=== PATIENT | male | born 1935 | race Caucasian/White ===

== ENCOUNTER 2023-02-06 15:10 | Emergency (ER) | payer MEDICARE, SELFPAY ==
[2023-02-06 15:33] VITALS: BP 141/56; PULSE 70; RESP 20; TEMP 36.6; O2SAT 98
--- NOTE | 2023-02-06 15:38 | ED.URI ---
HPI - URI/Sore Throat General Chief Complaint: Shortness of Breath/Dyspnea Stated Complaint: Throwing up, shortness of breath Time Seen by Provider: 02/06/23 15:35 Source: patient Mode of arrival: ambulatory Limitations: no limitations History of Present Illness HPI Narrative: Patient is a 87-year-old male who presents with 1 episode of vomiting today. Patient states he went to [employer] and had lunch then went to visit his . Patient states while he was with his he started feeling very nauseated and had 1 episode of emesis. Patient states he was diaphoretic during that time and felt weak. Patient states since then he has had no nausea, dizziness or shortness of breath. Patient has cardiology appointment on Friday. Patient states he would just like to be checked out to ensure hay and is not heart related or COVID. Denies any sick contacts. Related Data Home Medications Medication Instructions Recorded Confirmed Xarelto 02/06/23 bethanechol chloride 25 mg tablet mg 02/06/23 calcitriol 0.25 mcg capsule mcg 02/06/23 ergocalciferol (vitamin D2) 1,250 02/06/23 mcg (50,000 unit) capsule ezetimibe 10 mg tablet mg 02/06/23 fenofibrate 160 mg tablet mg 02/06/23 finasteride 5 mg tablet mg 02/06/23 lisinopril 10 mg tablet mg 02/06/23 simvastatin 40 mg tablet mg 02/06/23 tamsulosin 0.4 mg capsule mg PO 02/06/23 tramadol 50 mg tablet mg 02/06/23 Allergies Allergy/AdvReac Type Severity Reaction Status Date / Time No Known Allergies Allergy Verified 02/06/23 15:25 Review of Systems Review of Systems: All systems reviewed & are unremarkable except as noted in HPI and below Constitutional: Constitutional: Denies body ache(s), Denies chills, Denies fatigue, Denies fever(s), Denies headache(s), Denies malaise and Denies weakness Eyes: Eyes: Denies blurry vision, Denies itchy eyes and Denies loss of vision ENT: Denies otalgia, Denies headache(s), Denies nasal congestion, Denies sinus pain and Denies sore throat Cardiovascular: Cardiovascular: Denies chest pain, Denies irregular heart rhythm and Denies dyspnea Respiratory: Respiratory: Denies cough and Denies dyspnea Gastrointestinal: Gastrointestinal: Denies abdominal pain, Denies diarrhea, Reports nausea and Reports vomiting Musculoskeletal: Musculoskeletal: Denies back pain, Denies myalgias and Denies arthralgias Integumentary/Breasts: Skin/Breast: Denies pruritus and Denies rash Neurologic: Denies headache(s), Denies loss of vision and Denies weakness Psychiatric: Psychiatric: Reports no additional psychiatric complaints Endocrine: Endocrine: Denies fatigue Allergic/Immunologic: Allergic/Immunologic: Denies itchy eyes PMFSH Comments At time of signature, agree with nursing past medical, surgical, social and family history. There is no relevant family history pertinent to the presenting complaint. Exam Const: General: cooperative, healthy appearing, comfortable, no acute distress and well nourished Nutritional Appearance: well nourished Orientation/consciousness: patient oriented x3 Limitations: no limitations HENMT: Head: normal to inspection, normocephalic and atraumatic Ears: hearing grossly normal bilaterally, external ears normal, TM's normal bilaterally, EAC's normal and no periauricular adenopathy Face/Nose/Sinus: Normal external nose present, Normal nasal mucous membranes and turbinates present, normal facial exam, sinuses nontender and face symmetric Face and sinus: normal facial exam, sinuses nontender and face symmetric Mouth: Yes Normal oral and palatal mucosa present, Yes lip normal, Yes tongue normal, Yes Normal salivary glands and ducts present, Yes oropharynx normal and Yes moist mucous membranes Teeth and gingiva: dentition normal Throat: posterior oropharynx normal, tonsils normal and uvula midline Eyes: General: appearance normal, both eyes and all related structures Alignment and Position: alignment normal and pos
--- NOTE | 2023-02-06 15:49 | ECG_ITS ---
Measurements Intervals [place] Rate: 65 P: 49 AL: 177 QRS: 48 QRSD: 105 T: 40 QT: 366 QTc: 381 Interpretive Statements SINUS RHYTHM NO PREVIOUS ECG AVAILABLE FOR COMPARISON Electronically Signed On 02-07-2023 14:23:12 CDT by Joanna Mike M.D.
[2023-02-06 16:10] LABS: Glucose Point of Care 144 mg/dl (65-105)
== END 2023-02-06 16:10 | disposition home or self-care (01) ==
PROVIDERS: Emergency Provider Nurse Practitioner Family; PCP Internal Medicine
DX: R11.2 Nausea with vomiting, unspecified (principal); Z20.822 Contact with and (suspected) exposure to COVID-19; E78.00 Pure hypercholesterolemia, unspecified; F41.9 Anxiety disorder, unspecified; Z95.5 Presence of coronary angioplasty implant and graft
CPT/HCPCS: 82948; 87426; 93005; 99213; C9803; G0463

== ENCOUNTER 2023-02-17 14:40 | Outpatient (CLI) | payer MEDICARE, SELFPAY ==
--- NOTE | 2023-02-18 07:02 | WPDPFTINT ---
PFT Procedure Performed PFT Procedure Performed Plethysmography (Lung Vol) Diffusing Cap (DLCO) Flow Vol Loop Spirometry w/o Bronchodil PFT Interpretation This is a pulmonary function test with spirometry, plethysmography and diffusing capacity. The test was performed and results interpreted in accordance with the 2019 and 2005 ATS/ERS Task Force guidelines respectively using the Global Lung Function Initiative-2012 reference equations. Patient demonstrated good effort and cooperation. Reproducibility criteria were met. The quality of the spirometry maneuver was Grade A. Findings: Spirometry: The contour the inspiratory and expiratory flow tracing are normal. The FVC is 2.67 L, 86% predicted. The FEV1 is 2.10 L, 91% predicted. The FEV1: FVC ratio 79%. Plethysmography: The total lung capacity is 4.13 L, 68% predicted. The functional residual capacity is 2.24 L, 69% predicted. The residual volume is 1.33 L, 53% predicted. Diffusing capacity: The diffusing capacity unadjusted for hemoglobin and carboxyhemoglobin is 12.2, 59% predicted. The diffusing capacity adjusted for alveolar volume is 3.40, 91% predicted. Impression: There is a mild restrictive ventilatory abnormality with a normal FEV1. The spirometry is normal without evidence of an obstructive abnormality. The diffusing capacity unadjusted for hemoglobin and carboxyhemoglobin is moderately decreased and normalizes when adjusted for alveolar volume. There are no prior studies for comparison
== END 2023-02-17 14:41 | disposition home or self-care (01) ==
LOC: ANHPFT 14:42
PROVIDERS: PCP Internal Medicine; Visit Provider Internal Medicine
DX: R06.00 Dyspnea, unspecified (principal); R94.2 Abnormal results of pulmonary function studies
CPT/HCPCS: 94375; 94726; 94729

== ENCOUNTER 2024-10-23 11:27 | Outpatient (CLI) | payer MEDICARE, SELFPAY ==
--- NOTE | ~2024-10-23 | XR_ITS ---
3 VIEWS LUMBAR SPINE Ordering provider: Thomas Rodriguez History: . Low back pain; pulling/lifting injury last week . Comparison: None. FINDINGS: VERTEBRAL BODIES:Postoperative changes at the level of L4 and L5. No visible fracture or subluxation . Degenerative changes of the spine. DISK SPACES: Narrowing of the disc L2-L3, L3-L4, L4-L5 and L5-S1. Facet joint disease at the level of L4-L5 and L5-S1. SOFT TISSUES: Atherosclerotic changes of the aorta with possibility of dilatation the left distal aor ta.. Ultrasound evaluation advised. IMPRESSION: No acute osseous abnormality lumbar spine. Multilevel degenerative disc. Reviewed, dictated and finalized at location A.
== END 2024-10-23 11:28 | disposition home or self-care (01) ==
PROVIDERS: PCP Internal Medicine
DX: M51.369 Other intervertebral disc degeneration, lumbar region without mention of lumbar back pain or lower extremity pain (principal)
CPT/HCPCS: 72100

== ENCOUNTER 2025-01-17 13:23 | Outpatient (CLI) | payer MEDICARE, SELFPAY ==
--- NOTE | ~2025-01-17 | CT_ITS ---
EXAMINATION: CT lumbar spine wo con DATE: 01/17/2025 13:57 INDICATION: Lumbar radicular pain TECHNIQUE: Computed tomography (CT) of the lumbar spine was performed without intravenous contrast. T he dose-length product was 822.17 mGy-cm. COMPARISON: None FINDINGS: 5 degrees lower lumbar levocurvature. Sagittal alignment is normal. Vertebral body heights are normal . No fracture. Severe disc height loss at L2-L3, L4-L5 and L5-S1. Mild disc height loss at L1-L2 and L3-L4. Mild bilateral renal atrophy. Partially visualized fusiform infrarenal abdominal aortic aneury sm visualized portion which measures up to 5.6 cm in maximal diameter which is spanned by an aorto bi iliac endoluminal stent graft. Paravertebral soft tissues are otherwise unremarkable. The following d isc levels are specifically discussed: T12-L1: There is moderate left and mild to moderate right facet joint osteoarthritis. There is no aga ral foraminal stenosis. There is no central canal stenosis. L1-L2: Disc is bulging. There is right and mild left facet joint osteoarthritis. There is moderate le ft and mild right neural foraminal stenosis. There is mild central canal stenosis. L2-L3: Disc is bulging. There is moderate to severe bilateral facet joint osteoarthritis. There is mo derate bilateral neural foraminal stenosis. There is moderate central canal stenosis. L3-L4: Disc is bulging. There is moderate bilateral facet joint osteoarthritis. There is moderate rachell ateral neural foraminal stenosis. There is mild to moderate central canal stenosis. L4-L5: Disc is bulging. There is moderate bilateral facet joint osteoarthritis. There is moderate rachell ateral neural foraminal stenosis. There is mild central canal stenosis. L5-S1: Posterior disc osteophyte complex. There is moderate bilateral facet joint osteoarthritis. The re is moderate bilateral neural foraminal stenosis. There is no central canal stenosis. IMPRESSION: 1. Severe lumbar spondylosis. Reviewed, dictated and finalized at location A.
== END 2025-01-17 13:24 | disposition home or self-care (01) ==
LOC: MICIMG 13:25
PROVIDERS: PCP Internal Medicine; Visit Provider Nurse Practitioner Family
DX: M47.26 Other spondylosis with radiculopathy, lumbar region (principal)
CPT/HCPCS: 72131

== ENCOUNTER 2025-02-22 07:21 | Emergency (ER) | payer MEDICARE, SELFPAY ==
--- OUTSIDE RECORDS SUMMARY | 2025-01-05 10:15 | XMS_ITS ---
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 Role Phone Hunter Mark Unavailable [phone] Social History Sex Assigned At : Social History Observation Description Sex Assigned At Male Encounters Encounter Location Date Provider Diagnosis [place] [facility] [address] [facility] [address] [place] [address] 01/05/2025 Hunter Mark Plan Of Treatment Next Appt Details Provider Name:Hunter Mark , 04/15/2025 01:15:00 PM, [address] [facility], [facility], [place], [address], Progress Notes * HANNAH MILLERDOB: (89 yo M)Acc No.[id number]:01/05/2025 Progress Notes Patient: HANNAH LOUIS Provider: Myriam FRANCIS MD, ShirleyC.P, F.A.S.N. :1935 A ge:89 Y S ex:Male Date:01/05/2025 Address:[address] [place] [address] Subjective: * Chief Complaints: * * Medical History: Objective: * Vitals: Assessment: Plan: * Treatment: * Billing Information: * Visit Code: * Procedure Codes: * Electronic signature of Maria Guadalupe Mark MD on 02/22/2025 at 07:23 AM CDT Sign off status: Pending * Provider: Myriam FRANCIS MD, Figueroa.Rachel.C.P, F.A.S.N. Date: 01/05/2025 Generated for Printing/Faxing/eTransmitting on: 0 02/22/2025 07:23 AM CDT
--- OUTSIDE RECORDS SUMMARY | 2025-01-26 11:15 | XMS_ITS ---
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 Role Phone Hunter Mark Unavailable [phone] Social History Sex Assigned At : Social History Observation Description Sex Assigned At Male Encounters Encounter Location Date Provider Diagnosis [place] [facility] [address] [facility] [address] [place] [address] 01/26/2025 Hunter Mark Plan Of Treatment Next Appt Details Provider Name:Hunter Mark , 04/15/2025 01:15:00 PM, [address] [facility], [facility] [address], [place], [address], Progress Notes * HANNAH MILLERDOB: (89 yo M)Acc No.[id number]:01/26/2025 Progress Notes Patient: HANNAH LOUIS Provider: Myriam FRANCIS MD, ShirleyC.P, F.A.S.N. :1935 A ge:89 Y S ex:Male Date:01/26/2025 Address:[address] [place] [address] Subjective: * Chief Complaints: * * Medical History: Objective: * Vitals: Assessment: Plan: * Treatment: * Billing Information: * Visit Code: * Procedure Codes: * Electronic signature of Maria Guadalupe Mark MD on 02/22/2025 at 07:24 AM CDT Sign off status: Pending * Provider: Myriam FRANCIS MD, Figueroa.Rachel.C.P, F.A.S.N. Date: 01/26/2025 Generated for Printing/Faxing/eTransmitting on: 0 02/22/2025 07:24 AM CDT
--- OUTSIDE RECORDS SUMMARY | 2025-01-28 10:30 | XMS_ITS ---
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 Name Role Phone Hunter Mark Unavailable [phone] Social History Sex Assigned At : Social History Observation Description Sex Assigned At Male Problems Problem Type SNOMED Code ICD Code Onset Dates Problem Status W/U Status Risk Notes Problem Chronic kidney disease, stage 3a (N18.31) Active confirmed Encounters Encounter Location Date Provider Diagnosis [place] [facility] [address] [facility] [address] [place] [address] 01/28/2025 Hunter Mark Chronic kidney disea se, stage 3a N18.31 ; Essential hypertension I10 ; Edema, unspecified R60.9 ; Proteinuria, unspecified R80.9 ; Secondary hyperparathyroidism, not elsewhere classified E21.1 ; Renal osteodystrophy N25.0 ; Type 2 diabetes mellitus with diabetic chronic kidney disease E11.22 ; Hyperlipidemia, unspecified E78.5 ; 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 ; Sciatica, unspecified side M54.30 and Abdominal aortic aneurysm, without rupture, unspecified I71.40 Assessments Encounter Date Diagnosis (ICD Code) Assessment Notes Treatment Notes Treatment Clinical Notes Section Notes 01/28/2025 Chronic kidney disease, stage 3a (ICD-10 - N18.31) 01/28/2025 Essential hypertension (ICD-10 - I10) 01/28/2025 Edema, unspecified (ICD-10 - R60.9) 01/28/2025 Proteinuria, unspecified (ICD-10 - R80.9) 01/28/2025 Secondary hyperparathyroidism , not elsewhere classified (ICD-10 - E21.1) 01/28/2025 Renal osteodystrophy (ICD-10 - N25.0) 01/28/2025 Type 2 diabetes mellitus with diabetic chronic kidney disease (ICD-10 - E11.22) 01/28/2025 Hyperlipidemia, unspecified (ICD-10 - E78.5) 01/28/2025 Neurocognitive disorder with Lewy bodies (ICD-10 - G31.83) 01/28/2025 Sciatica, unspecified side (ICD-10 - M54.30) 01/28/2025 Abdominal aortic aneurysm, without rupture, unspecified (ICD-10 - I71.40) Plan Of Treatment Next Appt Details Provider Name:Hunter Jas , 04/15/2025 01:15:00 PM, [address] [facility], [facility] [address], [place], [address], Progress Notes * HANNAH MILLERDOB: 8 (89 yo M)Acc No.[id number]:01/28/2025 Progress Notes Patient: HANNAH LUOIS Provider: Myriam FRANCIS MD, F.A.C.P, F.A.S.N. :1935 A ge:89 Y S ex:Male Date:01/28/2025 Address:[address] [place] [id number] Subjective: * Chief Complaints: Objective: Assessment: * Assessment: 1. C hronic kidney disease, stage 3a - N18.31 (Primary) 2 . E ssential hypertension - I10 3 . E moni, unspecified - R60.9 4 . P roteinuria, unspecified - R80.9 5 . S econdary hyperparathyroidism, not elsewhere classified - E21.1 6 . R enal osteodystrophy - N25.0 7 . 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 H yperlipidemia, unspecified - E78.5 9 . N eurocognitive disorder with Lewy bodies - G31.83 10. S ciatica, unspecified side - M54.30 1 1. A bdominal aortic aneurysm, without rupture, unspecified - I71.40 Plan: * Billing Information: * Visit Code: 89863 Office Visit, Est Pt., Level 4. * Procedure Codes: * Electronic signature of Maria Guadalupe Mark MD on 02/22/2025 at 07:24 AM CDT Sign off status: Pending * Provider: Myriam FRANCIS MD, F.A.C.P, F.A.S.N. Date: 01/28/2025 Generated for Printing/Faxing/eTransmitting on: 02/22/2025 07:24 AM CDT
--- OUTSIDE RECORDS SUMMARY | 2025-02-22 07:24 | XMS_ITS | Clinical Summary ---
Author Organization [facility] Address [address] [place] [address] Care Team Providers Care Chro Name Role Phone Luis Middleton MD Unavailable [phone] Campbell Treadwell MD Primary Care Provider Reji Morgan MD Unavailable [phone] Allergies No known active allergies Medications traMADoL (ULTRAM) 50 mg tablet Take 1 tablet (50 mg total) by mouth daily as needed Active tamsulosin (FLOMAX) 0.4 mg extended release capsule Take 1 capsule (0.4 mg total) by mouth every morning Active simvastatin (ZOCOR) 40 mg tablet Take 1 tablet (40 mg total) by mouth nightly 4 Active prednisoLONE sodium phosphate (INFLAMASE FORTE) 1 % ophthalmic solution Active nitroglycerin (Nitrostat) 0.4 mg SL tablet Apply topically 4 Active meclizine (ANTIVERT) 25 mg tablet Take 1 tablet (25 mg total) by mouth 3 (three) times a day as needed 5 Active losartan (COZAAR) 100 mg tablet Take 1 tablet (100 mg total) by mouth every morning Active finasteride (PROSCAR) 5 mg tablet Take 1 tablet (5 mg total) by mouth every morning Active ezetimibe (ZETIA) 10 mg tablet Take 1 tablet (10 mg total) by mouth every morning Active ergocalciferol (VITAMIN D) 50,000 unit capsule Take 1 capsule (50,000 Units total) by mouth every 14 (fourteen) days Active cyanocobalamin, vitamin B-12, 1,000 mcg capsule Take 1 tablet/capsule by mouth as needed 2 Active clopidogreL (PLAVIX) 75 mg tablet Take 1 tablet (75 mg total) by mouth every morning 5 Active calcitRIOL (ROCALTROL) 0.25 mcg capsule Take 1 tablet by mouth every morning Active bethanechol (URECHOLINE) 25 mg tablet Take 1 tablet (25 mg total) by mouth every morning Active aspirin 81 mg chewable tablet Take 1 tablet (81 mg total) by mouth every morning Active amitriptyline (ELAVIL) 25 mg tablet Take 1 tablet (25 mg total) by mouth nightly 5 Active allopurinoL (ZYLOPRIM) 100 mg tablet Take 1 tablet (100 mg total) by mouth every morning Active amLODIPine (NORVASC) 5 mg tablet Take 1 tablet (5 mg total) by mouth every morning Active omeprazole (PriLOSEC) 20 mg capsule 5 Active Active Problems Problem Noted Date Diagnosed Date Cervical spondylosis 12/23/2024 Moderate major depression 12/23/2024 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 Edema, unspecified 11/19/2024 Proteinuria 11/19/2024 Sciatica 11/19/2024 Secondary hyperparathyroidism 11/19/2024 Abdominal aortic aneurysm (AAA) without rupture 11/17/2024 Abnormal renal function 10/25/2024 Arthritis 10/25/2024 Dyslipidemia 10/25/2024 Ingrowing toenail 10/25/2024 Lesion of penis 10/25/2024 Upper respiratory infection 10/25/2024 Benign paroxysmal positional vertigo 10/25/2024 Dysuria 11/20/2023 Pain of left hip joint 11/11/2023 Hearing loss 06/17/2023 Insomnia 05/14/2023 Gastroesophageal reflux disease without esophagi tis 04/11/2023 Venous insufficiency 03/14/2023 Pulmonary hypertension 03/06/2023 Atherosclerosis of [place] ter[place] of extremities with intermittent claudication, unspecified extremity 02/28/2023 Dyspnea 01/21/2023 Impacted cerumen of right ear 01/21/2023 Lower urinary tract symptoms due to benign prostatic hyperplasia 11/18/2022 Nocturia 10/07/2022 Urinary hesitancy due to benign prostatic hyperp lasia 10/07/2022 Anxiety 09/09/2022 Low back pain 08/20/2022 Symptoms involving urinary system 08/12/2022 Acute sinusitis 08/06/2022 Renal artery stenosis 03/06/2022 Visual disturbance 01/08/2022 Neck pain 08/19/2021 Type 2 diabetes mellitus without complication Diastolic dysfunction 06/03/2019 Hypercholesterolemia 06/03/2019 Overview (12/23/2024): could not affored vascpae Phreesia 12/23/2022 Abnormal prostate specific antigen (PSA) 018 Type 2 diabetes mellitus wit h diabetic chronic kidney disease 04/23/2018 Overview (10/25/2024): on nikki, coudl noat afford farxaiga, neg uacr B12 deficiency 04/22/2018 Overview (10/25/2024): folate ok Supraventricular tachycardia 04/22/2018 Valvular heart disease 04/22/2018 Benign nodular prostatic hyp erplasia with lower urinary tract symptoms 06/18/2017 Anemia 02/20/2017 Renal osteodystrophy 02/20/2017 Anemia, iron deficiency 07/15/2016 Coronary atherosclerosis 04/03/2016 Overview (10/25/2024): on x 2.5 Hypertension 04/03/2016 Overview (12/23/2024): Phreesia 12/23/2022 Obesity 04/03/2016 Overview (10/25/2024): wegovy not covred Sleep apnea, unspecified 04/03/2016 Vertigo 04/03/2016 Abdominal aortic aneurysm 01/10/2014 Chronic obstructive pulmonary disease 01/10/2014 Pure hypercholesterolemia, unspecified 4 Encounters Date Type Department Care Team Description 12/23/2024 11:00 AM CDT Office Visit [facility] [address] [place] [phone] Luis Middleton MD Encounter for surgical aftercare following surgery on the circulatory system (Primary Dx); Infrarenal abdominal aortic aneurysm (AAA) without rupture; Moderate major depression (HCC); Pulmonary hypertension (HCC); Diffuse Lewy body disease (HCC); Pulmonary emphysema, unspecified emphysema type (HCC); Type 2 diabetes mellitus with stage 3 chronic kidney disease, unspecified whether extermination supervisor insulin use, unspecified whether stage 3a or 3b CKD (HCC) 12/23/2024 9:56 AM CDT - 12/23/2024 11:59 PM CDT Hospital Encounter [facility] - [facility] [address] [place] [id number] Luis Middleton MD Infrarenal abdominal aortic aneurysm (AAA) without rupture Discharge Disposition: Discharge to home or self care from Last 3 Months Immunizations Immunization Administration Dates Next Due Influenza, Quad, Adjuvantate d, Intramuscular 03/08/2023,04/03/2022 Influenza, Quadrivalent, Hig h Dose, Preservative Free, Intrr 05/11/2021,04/13/2020 Influenza, Quadrivalent, Spl it, Intramuscular 04/21/2019 Influenza, Trivalent, High D ose, Split, Preservative Free, Intramuscular 04/21/2024,04/11/2020,04/21/2019,04/08,04/28/2017,04/27/2017,04/26/2016 ,04/10/2015,04/06/2015,04/21/2013 Influenza, Trivalent, IM (MDV) 04/13/2014 Influenza, Unspecified 04/09/2018 Pfizer SARS-CoV-2 Monovalent Vaccination (12+ Yrs) PURPLE 10/16/2020,09/18/2020 Pneumococcal Conjugate PCV 13 02/14/2017 Pneumococcal Conjugate, Unspecified 05/02/2012 RSV Vaccine, Pref, Recombina nt, Subunit, Adjuvanted, PF, IM (Arexvy) 10/05/2024 Surgical History Surgery Date Site/Laterality Comments REPLACEMENT TOTAL KNEE 06/30/2016 - 06/29/2017 Right BACK SURGERY EYE SURGERY Cataracts CARDIAC SURGERY Stent placement JOINT REPLACEMENT Medical History Medical History Date Comments Hypertension Hyperlipidemia Pulmonary hypertension (HCC) AAA (abdominal aortic aneurysm) CAD (coronary artery disease) CKD (chronic kidney disease) Hyperkalemia Vertigo SVT (supraventricular tachycardia) Renal artery stenosis Social History Tobacco Use Types Packs/Day Years Used Date Smoking Tobacco: Former Cigarettes Smokeless Tobacco: Never Tobacco Cessation:Counseling Given: Not Answered [facility] Utilities Answer Date Recorded In the past 12 months has e electric, gas, oil, or water company threatened to shut off services in your home? No 11/18/2024 Social Connection and Isolation Panel Answer Date Recorded In a typical week, how many times do you talk on the phone with family, friends, or neighbors? Three times a week 11/18/2024 How often do you get togethe r with friends or relatives? Twice a week 11/18/2024 How often do you attend [facility] or rastafari services? More than 4 times per year 11/18/2024 Do you belong to any clubs o r organizations such as sabianist groups, unions, fraternal or athletic groups, or school groups? Yes 11/18/2024 Attends Club or Organization Meetings Not on chidi e 11/18/2024 Are you , , di vorced, , never , or living with a partner? 11/18/2024 AUDIT-C Answer Date Recorded Q1: How often do you have a drink containing alcohol? Never 11/04/2024 Q2: How many drinks containi ng alcohol do you have on a typical day when you are drinking? Patient does not drink Frequency of Binge Drinking Not on file 01/2025 Overall Financial Resource Strain (CARDIA) Answe r Date Recorded How hard is it for you to pa y for the very basics like food, housing, medical care, and heating? Not very hard 11/18/2024 Hunger Vital Sign Answer Date Recorded Within the past 12 months, y ou worried that your food would run out before you got the money to buy more. Sometimes true Within the past 12 months, t he food you bought just didn't last and you didn't have money to get more. Sometimes true PRAPARE - Transportation Answer Date Re corded In the past 12 months, has l ack of transportation kept you from medical appointments or from getting medications? No 10/29 In the past 12 months, has l ack of transportation kept you from meetings, work, or from getting things needed for daily living? No 11/18/2024 Housing Stability Vital Sign Answer Eladio e Recorded In the last 12 months, was t here a time when you were not able to pay the mortgage or rent on time? No 11/18/2024 In the past 12 months, how m any times have you moved where you were living? 0 11/18/2024 At any time in the past [facility], were you homeless or living in a [facility] (including now)? No 11/18/2024 Personal Safety Answer Date Recorded Have you ever been in or are you currently in a harmful physical or emotional relationship or is someone making you feel afraid or unsafe? Denies 11/17/2024 Sex and Gender Information Value Date Recorded Sex Assigned at Not on file Legal Sex Male 3:56 PM [employer] Gender Identity Not on file Sexual Orientation Not on file Obstetrics History Last Filed Vital Signs Vital Sign Reading Time Taken Comments Blood Pressure 145/71 12/23/2024 11:11 AM CDT Pulse 61 12/23/2024 11:11 AM CDT Temperature 36.4 C (97.5 F) 12/23/2024 11:11 AM CDT Respiratory Rate 17 11/19/2024 7:41 AM CDT Oxygen Saturation 99% 12/23/2024 11:11 AM CDT Inhaled Oxygen Concentration - - Weight 81.4 kg (179 lb 6.4 oz) 12/23/2024 11:11 AM CDT Height 165.1 cm (5' 5) 12/23/2024 11:11 AM CDT Body Mass Index 29.85 12/23/2024 11:11 AM CDT Plan of Treatment Health Maintenance Due Date Last Done Comments Albumin Creatinine Ratio, Urine 1937 Depression Screening 1937 Dilated Eye Exam 1937 Foot Exam 1937 Lipid Panel 1937 DTaP/Tdap/Td Vaccine (1 - Tdap) 1948 Hepatitis B Screening 12/12/1955 Zoster Vaccine (1 of 2) 12/12/1987 Well Visit 65+ 2002 Pneumococcal vaccine 65+ (2 of 2 - PPSV23, PCV20, or PCV21) 04/11/2017 02/14/2017, 05/02/2012 Covid-19 Vaccine (2023-2 5 season) 2024 07/04/2023, 05/14/2022, 06/01/2021, Additional history exists Influenza Vaccine (#1) 2025 , 03/08/2023, 04/03/2022, Additional history exists Hemoglobin A1C 05/07/2025 11/04/2024 eGFR 11/18/2025 11/18/2024, 11/04/2024 Fall Risk Assessment 11/19/2025 11/19/2024 Medical Devices Implanted Type Area Vein Pumper Device Identifier Shelf Expiration Date Model / Serial / Lot [employer] Excluder 14.5mm 26mm 12cm 5.5cm Conformable Active Control Trunk [id number] - [id number] - [id number] Implanted:Qty: 1 on 11/17/2024 by Luis Middleton MD at [facility] Stent Right: Aorta [employer] [id number] 09/07/2027 [id number] / [id number] / Description:Main body to the right aorta [employer] Excluder 16mm 13.5-14.5mm 11.5cm Stent Abrasion Resistant [id number] - [id number] - [id number] Implanted:Qty: 1 on 11/17/2024 by Luis Middleton MD at [facility] Stent Left: Iliac [employer] [id number] 05/13/2027 [id number] / [id number] / [employer] Excluder 16mm 13.5-14.5mm 9.5cm Stent Abrasion Resistant [id number] - [id number] - [id number] Implanted:Qty: 1 on 11/17/2024 by Luis Middleton MD at [facility] Stent Right: Iliac [employer] [id number] 07/26/2027 [id number] / [id number] / [employer] Closure Repair Femoral Artery Suture Mediated Perclose Prostyle 02384-94 - Sna - [id number] Implanted:Qty: 2 on 11/17/2024 by Luis Middleton MD at [facility] Right: Groin [employer] 08/27/2026 [id number] / NA / [id number] [employer] Closure Repair Femoral Artery Suture Mediated Perclose Prostyle 95270-42 - [id number] Implanted:Qty: 2 on 11/17/2024 by Luis Middleton MD at [facility] Left: Groin [employer] 08/27/2026 [id number] / / [id number] Procedures Procedure Name Priority Date/Time Associated Diagnosis Comments CTA ABDOMEN PELVIS W WO CONTRAST Schedule Routine, Read Routine (OP Routine) 12/23/2024 10:40 AM CDT Infrarenal abdominal aortic aneurysm (AAA) without rupture POCT CREATININE FOR CONTRAST EVALUATION Routine 12/23/2024 10:08 AM CDT EGFR Routine 11/18/2024 12:46 AM CDT HEMOGLOBIN A1C Routine 11/04/2024 10:46 AM CDT Preoperative examination from Last 3 Months or Most Recently Relevant to Health Maintenance Results * CTA Abdomen Pelvis (12/23/2024 10:40 AM CDT) Anatomical Region Laterality Modality Body N/A Computed Tomogra phy 12/24/2024 8:12 AM CDT Impressions 12/24/2024 8:24 AM CDT IMPRESSION: 1. Unchanged size of the 55 mm x 55 mm infrarenal abdominal aortic aneurysm with interval placement of an aortobiiliac stent graft. 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 2. AAA volume: 135 cc. This is was not measured on the prior examination. Dictated by: Singh Barry M.D. The radiology attending physician has personally reviewed this study, and had reviewed and/or edited this written report and agrees with it. Electronically signed by: Melisa Rader M.D. Narrative 12/24/2024 8:24 AM CDT EXAMINATION: CT ANGIOGRAPHY OF THE ABDOMEN AND PELVIS WITH AND WITHOUT CONTRAST HISTORY: 89-year-old male status post endovascular repair of abdominal aortic aneurysm on 11/17/2024. TECHNIQUE: CT angiography of the abdomen and pelvis was performed prior to and following the uneventful intravenous administration of 100 ml Optiray-350 using the post-endoluminal stent graft protocol. Vascular 3D images were generated on a dedicated workstation and also reviewed. COMPARISON: CT abdomen and pelvis 10/24/2024. FINDINGS: VASCULAR FINDINGS: There is an infrarenal abdominal aortic aneurysm with interval placement of an [id number]-jh-uccvn stent graft. The proximal attachment site is just distal to the takeoff of the renal arteries, and the distal attachment sites are in the bilateral common iliac arteries. There is perigraft flow along the distal portion of the stent graft compatible with an endoleak, which is likely arising from the inferior mesenteric artery (series 5 image 60, series 9 image 40).] No visceral stents are present. AAA volume (lowest renal artery to aortic bifurcation): 135 cc. This is stable since the prior exam. The maximum diameter of the aneurysm is 55 mm AP x 55 mm [id number], previously 55 x 53 mm. The maximum diameter of the graft is 24 mm AP x 24 mm qxufp-od-nimb. NON-VASCULAR FINDINGS: Scattered granulomas in the imaged lung bases. Liver, adrenal glands, and spleen are normal. Fatty atrophy of the pancreas. Kidneys enhance symmetrically without hydronephrosis. Bilateral hypoattenuating renal lesions, some which likely represent renal cysts while others are too small to characterize. Left retroaortic renal vein. Urinary bladder is normal. No bowel obstruction. No abdominal or pelvic lymphadenopathy. No suspicious osseous lesion. Procedure Note Melisa Rader MD - 12/24/2024 EXAMINATION: CT ANGIOGRAPHY OF THE ABDOMEN AND PELVIS WITH AND WITHOUT CONTRAST HISTORY: 89-year-old male status post endovascular repair of abdominal aortic aneurysm on 11/17/2024. TECHNIQUE: CT angiography of the abdomen and pelvis was performed prior to and following the uneventful intravenous administration of 100 ml Optiray-350 using the post-endoluminal stent graft protocol. Vascular 3D images were generated on a dedicated workstation and also reviewed. COMPARISON: CT abdomen and pelvis 10/24/2024. FINDINGS: VASCULAR FINDINGS: There is an infrarenal abdominal aortic aneurysm with interval placement of an clqyj-mc-xkzct stent graft. The proximal attachment site is just distal to the takeoff of the renal arteries, and the distal attachment sites are in the bilateral common iliac arteries. There is perigraft flow along the distal portion of the stent graft compatible with an endoleak, which is likely arising from the inferior mesenteric artery (series 5 image 60, series 9 image 40).] No visceral stents are present. AAA volume (lowest renal artery to aortic bifurcation): 135 cc. This is stable since the prior exam. The maximum diameter of the aneurysm is 55 mm AP x 55 mm gqemr-wp-uzmc, previously 55 x 53 mm. The maximum diameter of the graft is 24 mm AP x 24 mm kfhyi-tr-vzdm. NON-VASCULAR FINDINGS: Scattered granulomas in the imaged lung bases. Liver, adrenal glands, and spleen are normal. Fatty atrophy of the pancreas. Kidneys enhance symmetrically without hydronephrosis. Bilateral hypoattenuating renal lesions, some which likely represent renal cysts while others are too small to characterize. Left retroaortic renal vein. Urinary bladder is normal. No bowel obstruction. No abdominal or pelvic lymphadenopathy. No suspicious osseous lesion. IMPRESSION: IMPRESSION: 1. Unchanged size of the 55 mm x 55 mm infrarenal abdominal aortic aneurysm with interval placement of an aortobiiliac stent graft. 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 2. AAA volume: 135 cc. This is was not measured on the prior examination. Dictated by: Singh Barry M.D. The radiology attending physician has personally reviewed this study, and had reviewed and/or edited this written report and agrees with it. Electronically signed by: Melisa Rader M.D. Luis Middleton MD IMG CT PROCEDURES Final Result * POCT creatinine for contrast evaluation (12/23/2024 10:08 AM CDT) Creatinine, POC 1.1 0.6 - 1.5 mg/dL Comment:eGFR: 67 Blood 12/23/2024 10:0 8 AM CDT us Luis Middleton MD POINT OF CARE TEST LASHONDA HACKETT Final Result * eGFR (11/18/2024 12:46 AM CDT) eGFR 73 >=60 mL/min/1. 73 m2 Comment: Interpretive Data Reference Interval Normal >/= 90 mL/min/1.73m2 Mildly decreased* 60 - 89 mL/min/1.73m2 Mildly to moderately decreased 45 - 59 mL/min/1.73m2 Moderately to severely decreased 30 - 44 mL/min/1.73m2 Severely decreased 15 - 29 mL/min/1.73m2 Kidney Failure < 15 mL/min/1.73m2 *Relative to young adult level Estimated glomerular filtration rate is determined by the 2020 CKD-EPI equation recommended by the National Kidney Foundation (A Unifying Approach to GFR Estimation: Recommendations of the NKF-ASK Task Force on Reassessing the Inclusion of Race in Diagnosing Kidney Disease, JASN 2020). The CKD-EPI equation should not be used for patients with unstable renal function and has not been validated in children and those over 70. Current interpretive data was last reviewed 2021. Blood 11/18/2024 12:4 6 AM CDT 11/18/2024 1:14 AM CDT Luis Middleton MD LAB BLOOD ORDERABLES Fi nal Result [facility] [address] Department [place] [address] * (ABNORMAL) Hemoglobin A1c (11/04/2024 10:46 AM CDT) Hgb A1C 5.9(H) 4.0 - 5.6 % Estimated Average Glucose 123 mg/dL [facility] Comment: The ADA recommends reporting an estimated Average Glucose (eAG) with all Hemoglobin A1c results using the equation derived from a study of 507 normal and diabetic adults. Minority populations were underrepresented and children were not included. (Diabetes Care 31:4783-7947, 2008). The eAG is not equivalent to a fasting glucose. Blood 11/04/2024 10:4 6 AM CDT 11/04/2024 10:46 AM CDT Martha Crandall NP LAB BLOOD ORDERABLES Fin al Result [facility] [address] Department [place] [address] from Last 3 Months or Most Recently Relevant to Health Maintenance Insurance MEDICARE ADVANTAGE MEDICARE ADVANTAGE Advance Directives For more information, please contact: [phone] * Full Code (Latest Code Status on File) Date Activated Date Inactivated Comments 11/17/2024 2:03 PM 11/19/2024 2:16 PM Care Teams Chro Relationship Specialty Start Date End Date Campbell Treadwell MD [address] [place] [place] [address] PCP - General Internal Medicine 10/25/24 Luis Middleton MD [address] [facility] [place] [address] Surgeon Vascular Surgery 10/25/24 Reji Morgan MD [address] [place] [address] Nnps Cardiology 10/26/24
--- OUTSIDE RECORDS SUMMARY | 2025-02-22 07:24 | XMS_ITS | Patient Health Record ---
Author Organization [facility] Address [address] [place] [address] Care Team Providers Care Supervisor Advertising Dispatch Clerks Name Role Phone Hunter Mark Unavailable [phone] Reason For Referral No Information Medications Medication SIG (Take, Route, Frequency, Duration) Notes Start Date End Date Status Calcitriol 0.25 MCG TAKE 1 CAPSULE BY MO UTH EVERY DAY; Duration: 90 Active Finasteride 5 MG TAKE 1 TABLET BY KRZYSZTOF TH EVERY DAY FOR 90 DAYS; Duration: 90 Active Vitamin D (Ergocalciferol) 1.25 MG (18617 UT) TAKE 1 CAPSULE BY MOUTH ONE TIME PER WEEK FOR 90 DAYS; Duration: 90 Active Allopurinol 100 MG TAKE 1 TABLET BY KRZYSZTOF TH EVERY DAY; Duration: 90 Active Bethanechol Chloride 25 MG TAKE 1 TABLET BY MOUTH EVERY DAY; Duration: 90 Active Social History Sex Assigned At : Social History Observation Description Sex Assigned At Male Problems Problem Type SNOMED Code ICD Code Onset Dates Problem Status W/U Status Risk Notes Problem 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 Problem Secondary hyperparathyroidism (74362500) Secondary hyperparathyroid ism, not elsewhere classified (E21.1) Active confirmed Problem Hyperlipidemia (57282816) Hyperlipidemia, unspecified (E78.5) Active confirmed Problem Sciatica (42216003) Sciatica, unspecified side (M54.30) Active confirmed Problem Renal osteodystrophy (67372937) Renal osteodystrophy (N25.0) Active confirmed Problem Edema (12012774) Edema, unspecified (R60.9) Active confirmed Problem Proteinuria (17642019) Proteinuria, unspecified (R80.9) Active confirmed Problem Essential hypertension (47174709) Essential hypertension (I10) Active confirmed Problem Chronic kidney disease stage 3A (disorder) (658453249) Chronic kidney disease, stage 3a (N18.31) Active confirmed Problem 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 [address] [place] [address] 03/12/2024 Hunter Mark Chronic kidney disea se, stage 2 (mild) N18.2 ; Essential hypertension I10 ; Renal osteodystrophy N25.0 ; Edema, unspecified R60.9 ; Proteinuria, unspecified R80.9 and Secondary hyperparathyroidism, not elsewhere classified E21.1 [facility] [address] [place] [address] 06/11/2024 Hunter Mark Chronic kidney disea se, stage 3 unspecified N18.30 ; Essential hypertension I10 ; Edema, unspecified R60.9 ; Proteinuria, unspecified R80.9 ; Secondary hyperparathyroidism, not elsewhere classified E21.1 ; Renal osteodystrophy N25.0 and Chronic kidney disease, stage 2 (mild) N18.2 [facility] [address] [place] [address] 11/03/2024 Hunter Mark Chronic kidney disea se, stage 3 unspecified N18.30 ; Essential hypertension I10 ; Edema, unspecified R60.9 ; Proteinuria, unspecified R80.9 ; Secondary hyperparathyroidism, not elsewhere classified E21.1 ; Renal osteodystrophy N25.0 ; Type 2 diabetes mellitus with diabetic chronic kidney disease E11.22 ; Hyperlipidemia, unspecified E78.5 ; 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 ; Sciatica, unspecified side M54.30 and Abdominal aortic aneurysm, without rupture, unspecified I71.40 [facility] [address] [place] [address] 01/28/2025 Hunter Mark Chronic kidney disea se, [...] Abdominal aortic aneurysm, without rupture, unspecified I71.40 [facility] [address] [place] [address] 10/11/2024 Hunter Mark [facility] [address] [address] 10/19/2024 Hunter [facility] [address] [address] 11/03/2024 Hunter [facility] [address] [address] 11/03/2024 Hunter Mark Assessments Encounter Date Diagnosis (ICD Code) Assessment Notes Treatment Notes Treatment Clinical Notes Section Notes 03/12/2024 Chronic kidney disease, stage 2 (mild) (ICD-10 - N18.2) 06/11/2024 Chronic kidney disease, stage 3 unspecified (ICD-10 - N18.30) 11/03/2024 Chronic kidney disease, stage 3 unspecified (ICD-10 - N18.30) 01/28/2025 Chronic kidney disease, stage 3a (ICD-10 - N18.31) 01/28/2025 Essential hypertension (ICD-10 - I10) 11/03/2024 Essential hypertension (ICD-10 - I10) 03/12/2024 Essential hypertension (ICD-10 - I10) 06/11/2024 Essential hypertension (ICD-10 - I10) 03/12/2024 Renal osteodystrophy (ICD-10 - N25.0) 06/11/2024 Edema, unspecified (ICD-10 - R60.9) 11/03/2024 Edema, unspecified (ICD-10 - R60.9) 01/28/2025 Edema, unspecified (ICD-10 - R60.9) 01/28/2025 Proteinuria, unspecified (ICD-10 - R80.9) 11/03/2024 Proteinuria, unspecified (ICD-10 - R80.9) 06/11/2024 Proteinuria, unspecified (ICD-10 - R80.9) 03/12/2024 Edema, unspecified (ICD-10 - R60.9) 03/12/2024 Proteinuria, unspecified (ICD-10 - R80.9) 06/11/2024 Secondary hyperparathyroidism , not elsewhere classified (ICD-10 - E21.1) 11/03/2024 Secondary hyperparathyroidism , not elsewhere classified (ICD-10 - E21.1) 01/28/2025 Secondary hyperparathyroidism , not elsewhere classified (ICD-10 - E21.1) 01/28/2025 Renal osteodystrophy (ICD-10 - N25.0) 11/03/2024 Renal osteodystrophy (ICD-10 - N25.0) 03/12/2024 Secondary hyperparathyroidism , not elsewhere classified (ICD-10 - E21.1) 06/11/2024 Renal osteodystrophy (ICD-10 - N25.0) 06/11/2024 Chronic kidney disease, stage 2 (mild) (ICD-10 - N18.2) 11/03/2024 Type 2 diabetes mellitus with diabetic chronic kidney disease (ICD-10 - E11.22) 01/28/2025 Type 2 diabetes mellitus with diabetic chronic kidney disease (ICD-10 - E11.22) 01/28/2025 Hyperlipidemia, unspecified (ICD-10 - E78.5) 11/03/2024 Hyperlipidemia, unspecified (ICD-10 - E78.5) 11/03/2024 Neurocognitive disorder with Lewy bodies (ICD-10 - G31.83) 01/28/2025 Neurocognitive disorder with Lewy bodies (ICD-10 - G31.83) 01/28/2025 Sciatica, unspecified side (ICD-10 - M54.30) 11/03/2024 Sciatica, unspecified side (ICD-10 - M54.30) 11/03/2024 Abdominal aortic aneurysm, without rupture, unspecified (ICD-10 - I71.40) 01/28/2025 Abdominal aortic aneurysm, without rupture, unspecified (ICD-10 - I71.40) Plan Of Treatment Next Appt Details Provider Name:Hunter Jas , 04/15/2025 01:15:00 PM, [address] , [place], [address],
--- OUTSIDE RECORDS SUMMARY | 2025-02-22 07:24 | XMS_ITS | Clinical Summary ---
Author Organization [facility] Address [address] [place] [address] Care Team Providers Care Hourly Manager Name Role Phone Campbell Treadwell MD Primary Care Provider Allergies No known active allergies Medications clopidogrel (PLAVIX) 75 MG tablet Take 1 tablet (75 mg total) by mouth daily. Active losartan (COZAAR) 100 MG tablet Take 1 tablet (100 mg total) by mouth daily. Active finasteride (PROSCAR) 5 MG tablet Take 1 tablet (5 mg total) by mouth daily. Active allopurinol (ZYLOPRIM) 100 MG tablet Take 1 tablet (100 mg total) by mouth daily. Active tamsulosin (FLOMAX) 0.4 MG Cap Take 1 capsule (0.4 mg total) by mouth daily. Active omeprazole EC (PRILOSEC OTC) 20 MG tablet Take 1 tablet (20 mg total) by mouth daily. Active simvastatin (ZOCOR) 40 MG tablet Take 1 tablet (40 mg total) by mouth nightly at bedtime. Active aspirin 81 MG chewable tablet Chew 1 tablet (81 mg total) by mouth daily. Active Social History Tobacco Use Types Packs/Day Years Used Date Smoking Tobacco: Former Cigarettes Smokeless Tobacco: Never Tobacco Cessation:Counseling Given: Not Answered Alcohol Use Standard Drinks/Week Comments Never 0 (1 standard drink = 0.6 oz pur e alcohol) Sex and Gender Information Value Date Recorded Sex Assigned at Male 10/24/2024 9:45 AM CDT Legal Sex Male 9:31 AM CDT Gender Identity Male 10/24/2024 9:45 AM CDT Sexual Orientation Not on file Last Filed Vital Signs Vital Sign Reading Time Taken Comments Blood Pressure 179/100 10/24/2024 3:01 PM CDT Pulse 70 10/24/2024 3:01 PM CDT Temperature 36.3 C (97.3 F) 10/24/2024 9:38 AM CDT Respiratory Rate 20 10/24/2024 3:01 PM CDT Oxygen Saturation 95% 10/24/2024 2:53 PM CDT Inhaled Oxygen Concentration - - Weight 86.9 kg (191 lb 9.3 oz) 10/24/2024 9:38 A M CDT Height 165.1 cm (5' 5) 10/24/2024 9:38 AM CDT Body Mass Index 31.88 10/24/2024 9:38 AM CDT Plan of Treatment Health Maintenance Due Date Last Done Comments DTaP, Tdap and Td Vaccines (1 - Tdap) 1956 Zoster Vaccines (1 of 2) 12/12/1987 Annual Medicare Wellness Visit 2002 Pneumococcal Vaccine: 50+ Years (2 of 2 - PPSV23) 02/14/2018 02/14/2017 COVID-19 Vaccine ( season) 2024 07/04/2023, 05/14/2022, 06/01/2021, Additional history exists RSV Immunization or 60+ Years Completed 10/05/2024 Meningococcal B Vaccine Aged Out No l onger eligible based on patient's age to complete this topic Meningococcal Vaccine Aged Out No destiny angela eligible based on patient's age to complete this topic RSV Immunizations Under 20 Months Aged Out No longer eligible based on patient's age to complete this topic Insurance [facility] [place] [id number] Care Teams Hourly Manager Relationship Specialty Start Date End Date Campbell Treadwell MD [address] [address] PCP - General INTERNAL MEDICINE 10/24/24
[2025-02-22 07:27] VITALS: BP 141/83; PULSE 75; RESP 16; TEMP 36.4; O2SAT 98
--- OUTSIDE RECORDS SUMMARY | 2025-02-22 08:03 | XMS_ITS | Clinical Summary ---
Author Organization [facility] Address [address] [place] [address] Care Team Providers Care Director Of Government Sales Name Role Phone Campbell Treadwell MD Primary Care Provider [phone] Allergies No known active allergies Medications clopidogrel [...] to complete this topic Insurance [facility] [place] [id number] Care Teams Director Of Government Sales Relationship Specialty Start Date End Date Campbell Treadwell MD [address] [address] PCP - General INTERNAL MEDICINE 10/24/24
--- OUTSIDE RECORDS SUMMARY | 2025-02-22 08:03 | XMS_ITS | Clinical Summary ---
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, [...] Description 12/23/2024 11:00 AM CDT Office Visit [facility] Medicine Surgery [address] [place] [phone] Luis Middleton MD Encounter for surgical aftercare following surgery on the circulatory system (Primary Dx); Infrarenal abdominal aortic aneurysm (AAA) without rupture; Moderate major depression (HCC); Pulmonary hypertension (HCC); Diffuse Lewy body disease (HCC); Pulmonary emphysema, unspecified emphysema type (HCC); Type 2 diabetes mellitus with stage 3 chronic kidney disease, unspecified whether superintendent terminal insulin use, unspecified whether stage 3a or 3b CKD (HCC) 12/23/2024 9:56 AM CDT - 12/23/2024 11:59 PM CDT Hospital Encounter [facility] - Imaging [address] [place] [id number] Luis Middleton MD Infrarenal abdominal aortic aneurysm [...] Tobacco: Never Tobacco Cessation:Counseling Given: Not Answered [facility] Utilities Answer Date Recorded In the past [...] week 11/18/2024 How often do you attend [facility] or zoroastrianism services? More than 4 times per year 11/18/2024 Do you belong to any clubs o r organizations such as caodaism groups, unions, fraternal or athletic groups, or [...] any time in the past 12 [facility], were you homeless or living in a intermediate (including now)? No 11/18/2024 Personal Safety Answer Date Recorded Have you ever been in or are you currently in a harmful physical or emotional relationship or is someone making you feel afraid or unsafe? Denies 11/17/2024 Sex and Gender Information Value Date Recorded Sex Assigned at Not on file Legal Sex Male 3:56 PM DIRECTOR OF NEUROLOGY Gender Identity Not on file Sexual Orientation [...] 11/19/2025 11/19/2024 Medical Devices Implanted Type Area Maintenance Parts Technician Device Identifier Shelf Expiration Date Model / Serial / Lot [employer] Excluder 14.5mm 26mm 12cm 5.5cm Conformable Active Control Trunk [id number] - [id number] - [id number] Implanted:Qty: 1 on 11/17/2024 by Luis Middleton MD at [facility] Stent Right: Aorta [employer] [id number] 09/07/2027 [id number] / [id number] / Description:Main body to the right aorta [employer] Excluder 16mm 13.5-14.5mm 11.5cm Stent Abrasion Resistant [id number] - [id number] - [id number] Implanted:Qty: 1 on 11/17/2024 by Luis Middleton MD at [facility] Stent Left: Iliac [employer] [id number] 05/13/2027 [id number] / [id number] / [employer] Excluder 16mm 13.5-14.5mm 9.5cm Stent Abrasion Resistant [id number] - [id number] - [id number] Implanted:Qty: 1 on 11/17/2024 by Luis Middleton MD at [facility] Stent Right: Iliac [employer] [id number] 07/26/2027 [id number] / [id number] / [employer] Closure Repair Femoral Artery Suture Mediated Perclose Prostyle 95542-12 - Sna - [id number] Implanted:Qty: 2 on 11/17/2024 by Luis Middleton MD at [facility] Right: Groin [employer] 08/27/2026 [id number] / [id number] / [id number] [employer] Closure Repair Femoral Artery Suture Mediated Perclose Prostyle 93970-65 - [id number] Implanted:Qty: 2 on 11/17/2024 by Luis Middleton MD at [facility] Left: Groin [employer] 08/27/2026 [id number] / / [id number] Procedures Procedure Name Priority Date/Time Associated Diagnosis [...] aortic aneurysm with interval placement of an [id number] stent graft. The proximal attachment site is [...] is 55 mm AP x 55 mm qdxeq-dc-qoni, previously 55 x 53 mm. The maximum diameter of the graft is 24 mm AP x 24 mm pgofn-ym-fous. NON-VASCULAR FINDINGS: Scattered granulomas in the imaged [...] aortic aneurysm with interval placement of an mewtj-sq-todtb stent graft. The proximal attachment site is [...] is 55 mm AP x 55 mm qxiil-nt-oomj, previously 55 x 53 mm. The maximum diameter of the graft is 24 mm AP x 24 mm xpswr-ch-aomb. NON-VASCULAR FINDINGS: Scattered granulomas in the imaged [...] MD LAB BLOOD ORDERABLES Fi nal Result [facility] [address] Department [place] [address] * (ABNORMAL) Hemoglobin A1c (11/04/2024 10:46 AM CDT) Hgb A1C 5.9(H) 4.0 - 5.6 % Estimated Average Glucose 123 mg/dL [facility] Comment: The ADA recommends reporting an estimated Average Glucose (eAG) with all Hemoglobin A1c results using the equation derived from a study of 507 normal and diabetic adults. Minority populations were underrepresented and children were not included. (Diabetes Care 31:8432-0206, 2008). The eAG is not equivalent to a fasting glucose. Blood 11/04/2024 10:4 6 AM CDT 11/04/2024 10:46 AM CDT Martha Crandall NP LAB BLOOD ORDERABLES Fin al Result [facility] [address] Department [place] [address] from Last 3 Months or Most Recently Relevant to Health Maintenance Insurance [facility] Address: [address] [address] [place] [address] [facility] [facility] [facility] Address: [address] [address] [place] [address] Advance Directives For more information, please contact: [phone] * Full Code (Latest Code Status on File) Date Activated Date Inactivated Comments 11/17/2024 2:03 PM 11/19/2024 2:16 PM Care Teams Cnc Manufacturing Engineer Relationship Specialty Start Date End Date Campbell Treadwell MD [address] [place] [place] [address] PCP - General Internal Medicine 10/25/24 Luis Middleton MD [address] [facility] [place] [address] Surgeon Vascular Surgery 10/25/24 Reji Morgan MD [address] [place] [place] [address] Biomedical Analytical Scientist Cardiology 10/26/24
--- NOTE | 2025-02-22 08:17 | ED_ITS ---
HPI - Dental/Oral General Chief complaint: Dental/Oral Stated complaint: dental pain Time Seen by Provider: 02/22/25 07:47 History of Present Illness HPI Narrative: This is an 89-year-old male who presents to the ED for dental pain. Patient states that a few months ago, he had a tooth erupt. For the past week or so, he has had increasing pain to that. He saw the dentist last week and they have been monitoring it and are planning on extracting it later this week. Denies fevers, chills. Reports worsening swelling and pain. Related Data Home Medications ?Medication ?Instructions ?Recorded ?Confirmed ?Last Taken ?Type Xarelto 02/06/23 Unknown History bethanechol chloride 25 mg tablet mg 02/06/23 Unknown History calcitriol 0.25 mcg capsule mcg 02/06/23 Unknown Hist ory ergocalciferol (vitamin D2) 1,250 02/06/23 Unknown H istory mcg (50,000 unit) capsule ezetimibe 10 mg tablet mg 02/06/23 Unknown History fenofibrate 160 mg tablet mg 02/06/23 Unknown History finasteride 5 mg tablet mg 02/06/23 Unknown History lisinopril 10 mg tablet mg 02/06/23 Unknown History simvastatin 40 mg tablet mg 02/06/23 Unknown History tamsulosin 0.4 mg capsule mg PO 02/06/23 Unknown Hist ory tramadol 50 mg tablet mg 02/06/23 Unknown History Allergies Allergy/AdvReac Type Severity Reaction Status Date / Time No Known Allergies Allergy Verified 02/06/23 15:25 Review of Systems Review of Systems: Gen.: Denies fevers or chills Eyes: Denies eye pain or visual change ENT: Denies congestion Respiratory: Denies shortness of breath or cough CV: Denies chest pain or palpitations GI: Denies abdominal pain nausea, emesis or diarrhea denies burning, urgency, frequency or hematuria Musculoskeletal: Denies back pain or muscle pain Neuro: Denies numbness, tingling, weakness or focal weakness Skin: Denies rash Except as documented, all other systems reviewed and negative Exam Narrative: APPEARANCE: No acute distress, nontoxic, resting in bed HEENT: Normocephalic, atraumatic, OMM. Dental fracture with surrounding swelling and tenderness, no fluctuance. RESPIRATORY: No respiratory distress CARDIOVASCULAR: Appears well perfused ABDOMINAL: Nondistended MUSCULOSKELETAl: Moves all extremities. No obvious deformities NEURO: Awake and alert. SKIN:: Warm, dry. No rashes lesions or abrasions PSYCHIATRIC: Normal affect/mood, Course Vital Signs Vital signs: Vital Signs Temperature 97.6 F 02/22/25 07:27 Pulse Rate 75 02/22/25 07:27 Respiratory Rate 16 02/22/25 07:27 Blood Pressure 141/83 H 02/22/25 07:27 Pulse Oximetry 98 02/22/25 07:27 Oxygen Delivery Room Air 02/22/25 07:27 Temperature 97.6 F 02/22/25 07:27 Pulse Rate 70 02/22/25 08:35 Respiratory Rate 14 02/22/25 08:35 Blood Pressure 134/88 02/22/25 08:35 Pulse Oximetry 99 02/22/25 08:35 Oxygen Delivery Room Air 02/22/25 07:27 MDM - Dental/Oral MDM Narrative Medical decision making narrative: 89-year-old male who presented to the ED for dental pain. On initial evaluation, patient was in no acute distress, afebrile, hemodynamically stable. He did have what appeared to be a fractured singular mandibular incisor with tenderness anterior to this without fluctuance. Suspect that he does have a pulpitis. He is scheduled potential dental extraction in 2 days. I advised him to go to this. He was given a prescription for Augmentin and advised to take Tylenol and ibuprofen for his pain. Patient was agreeable to this plan. Given strict return precautions. Differential Diagnosis Differential diagnosis: Likely gingival abscess, dental caries, toothache, dental abscess and fracture of tooth Medical Records Attestation: I reviewed the patient's medical records. Discharge Plan Discharge Clinical Impression: Acute pulpitis Patient Disposition: Home Condition: Stable Instructions: Antibiotic Form, Dental Abscess (ED), Toothache (ED) Additional Instructions: Continue to follow-up with dentist on . Take Tylenol and ibuprofen for the pain. Take Augmentin as prescribed. Return to the ED for any new or worsening symptoms. Patient Language: Maltese Prescriptions: New amoxicillin-pot clavulanate 875-125 mg tablet 1 tablet PO Q12H Qty: 10 0RF No Action tramadol 50 mg tablet simvastatin 40 mg tablet bethanechol chloride 25 mg tablet tamsulosin 0.4 mg capsule PO lisinopril 10 mg tablet ergocalciferol (vitamin D2) 1,250 mcg (50,000 unit) capsule calcitriol 0.25 mcg capsule finasteride 5 mg tablet ezetimibe 10 mg tablet fenofibrate 160 mg tablet Xarelto ondansetron 4 mg tablet,disintegrating 4 mg PO Q6-8H PRN (Reason: nausea and vomiting) Qty: 7 0RF Follow-up/Referrals: Mile,Campbell Nguyen MD [Primary Care Provider, Unknown]
[2025-02-22 08:35] VITALS: BP 134/88; PULSE 70; RESP 14; O2SAT 99
== END 2025-02-22 08:36 | disposition home or self-care (01) ==
PROVIDERS: Emergency Provider Student in an Organized Health Care Education/Training Program; PCP Internal Medicine
DX: K04.01 Reversible pulpitis (principal)
CPT/HCPCS: 99283

== ENCOUNTER 2025-04-11 14:11 | Outpatient (CLI) | payer MEDICARE, SELFPAY ==
--- NOTE | ~2025-04-11 | CT_ITS ---
EXAMINATION: CT cervical spine wo con COMPARISON: None HISTORY: Cervical radicular pain TECHNIQUE: Axial images were obtained through the spine without IV contrast. Coronal, sagittal reconstruction images were obtained from the axial views. CT scan performed using dose optimization techniques including the following automated exposure control; adjustment of mA and/or kV; use of iterative reconstruction technique. Automatic exposure control was used to reduce radiation dose. Permanent radiation dose record is archived to PACS. FINDINGS: Grade 1 anterolisthesis of C4 on C5, no fracture is identified. Severe loss of disc height at C2-3, C3-4, C5-6 and C6-7 with calcification at the level of C4-5 in the posterior spinal canal producing multilevel moderate to severe canal and foraminal stenosis. Soft tissues unremarkable. Impression: Severe degenerative changes. MRI is recommended Reviewed, dictated and finalized at location P. Impression: Severe degenerative changes. MRI is recommended
== END 2025-04-11 14:12 | disposition home or self-care (01) ==
PROVIDERS: PCP Internal Medicine; Visit Provider Nurse Practitioner Family
DX: M43.12 Spondylolisthesis, cervical region (principal); M50.31 Other cervical disc degeneration, high cervical region; M50.322 Other cervical disc degeneration at C5-C6 level; M50.323 Other cervical disc degeneration at C6-C7 level; M48.02 Spinal stenosis, cervical region
CPT/HCPCS: 72125